=== PATIENT | male | born 1985 | race American Indian/Alaskan Native ===

== ENCOUNTER 2018-07-03 15:24 | Emergency (ER) | payer OTHER ==
[2018-07-03 15:32] VITALS: BMI 31.3
[2018-07-03 15:37] VITALS: TEMP 98.8
--- NOTE | 2018-07-03 15:43 | ED PDOC ---
Arrival/HPI - General Chief Complaint: Lower Extremity Problem/Injury Time Seen by Provider: 07/03/18 15:30 Historian: Patient - History of Present Illness Narrative History of Present Illness (Text): 33 y/o male with no significant PMH presents to the ED c/o mass on his right foot x 15 years. Patient states the mass intermittently changes in size and has recently become more painful over the last few weeks. Denies trauma/injury, fever, chills, redness, warmth, drainage, difficulty walking, weakness, numbness, or any other associated symptoms. Past Medical History - Provider Review Nursing Documentation Reviewed: Yes - Infectious Disease Hx of Infectious Diseases: None - Psychiatric Hx Substance Use: No Family/Social History - Physician Review Nursing Documentation Reviewed: Yes Family/Social History: No Known Family HX Smoking Status: Never Smoked Hx Alcohol Use: No Hx Substance Use: No Allergies/Home Meds Allergies/Adverse Reactions: Allergies No Known Allergies Allergy (Verified 07/03/18 15:32) Review of Systems - Physician Review All systems were reviewed & negative as marked: Yes - Review of Systems Constitutional: Normal. absent: Fevers Eyes: Normal. absent: Vision Changes ENT: Normal. absent: Sore Throat, Sinus Congestion Respiratory: Normal. absent: SOB, Cough Cardiovascular: Normal. absent: Chest Pain, Palpitations, Syncope Gastrointestinal: Normal. absent: Abdominal Pain, Nausea, Vomiting Genitourinary Male: Normal Musculoskeletal: Other (right foot mass) Skin: Normal. absent: Rash, Cellulitis Neurological: Normal. absent: Headache, Dizziness, Focal Weakness, Gait Changes, Other (numbness, paresthesias) Endocrine: Normal Hemo/Lymphatic: Normal. absent: Adenopathy Psychiatric: Normal Physical Exam Vital Signs Reviewed: Yes Vital Signs Temp Pulse Resp BP Pulse Ox 07/03/18 15:25 98.8 F 88 16 144/89 98 Temperature: Afebrile Blood Pressure: Normal Pulse: Regular Respiratory Rate: Normal Appearance: Positive for: Well-Appearing, Non-Toxic, Comfortable Pain Distress: None Mental Status: Positive for: Alert and Oriented X 3 - Systems Exam Head: Present: Atraumatic, Normocephalic Pupils: Present: PERRL Extroacular Muscles: Present: EOMI Conjunctiva: Present: Normal Mouth: Present: Moist Mucous Membranes Neck: Present: Normal Range of Motion. No: Meningeal Signs, Paraspinal Tenderness Respiratory/Chest: Present: Clear to Auscultation, Good Air Exchange. No: Respiratory Distress, Accessory Muscle Use Cardiovascular: Present: Regular Rate and Rhythm, Normal S1, S2, Peripheal Pulses Present. No: Murmurs Back: Present: Normal Inspection Upper Extremity: Present: Normal Inspection, Normal ROM, NORMAL PULSES, Neurovascularly Intact, Capillary Refill < 2s. No: Cyanosis, Edema Lower Extremity: Present: NORMAL PULSES, Normal ROM, Tenderness (over mass; mild), Neurovascularly Intact, Capillary Refill < 2 s, Other (cyst-like mass to lateral dorsum of right foot). No: Edema, Erythema Neurological: Present: GCS=15, CN II-XII Intact, Speech Normal, Motor Func Grossly Intact, Normal Sensory Function, Gait Normal Skin: Present: Warm, Dry, Normal Color. No: Rashes, Diaphoretic, Erythematous, Induration, Hot, Abscess, Other (cellulitis) Psychiatric: Present: Alert, Oriented x 3, Normal Insight, Normal Concentration, Normal Affect, Normal Mood Medical Decision Making ED Course and Treatment: Initial Plan: * Right foot Xray * Ibuprofen Patient reports decreased pain after medications Right Foot XR: No fracture or dislocation. Soft tissue swelling over cuboid bone, non-specific. Plan of care discussed with patient, and strict instructions given regarding prescriptions, importance of follow up, and signs to return to Emergency Department, to include redness, warmth, fever, chills, difficulty walking, or any other new/worsening symptoms. Patient verbalizes understanding of discussion. Patient A&Ox3, ambulating with steady gait, stable for discharge home. Disposition/Present on Arrival - Present on Arrival Any Indicators Present on Arrival: No History of DVT/PE: No History of Uncontrolled Diabetes: No Urinary Catheter: No History of Decub. Ulcer: No History Surgical Site Infection Following: None - Disposition Have Diagnosis and Disposition been Completed?: Yes Diagnosis: Mass of right foot Disposition: HOME/ ROUTINE Disposition Time: 16:45 Patient Plan: Discharge Condition: STABLE Discharge Instructions (ExitCare): Ganglion Cyst Additional Instructions: Naproxen daily with food for pain as needed Followup with podiatry tomorrow Followup with primary doctor within 2 days Return to ER for any new/worsening symptoms Prescriptions: Naproxen [Naprosyn] 500 mg PO DAILY PRN #14 tablet PRN Reason: Pain, Moderate (4-7) Referrals: Podiatry Clinic [Outside] - Follow up with primary Forms: [email or web address] ([place]), WORK NOTE
--- NOTE | 2018-07-03 16:29 | RAD ---
Date of service: 07/03/2018 PROCEDURE: Right Foot Radiographs. HISTORY: foot pain COMPARISON: None. FINDINGS: BONES: Normal. No fracture. JOINTS: Normal. SOFT TISSUES: There is a focal area of soft tissue swelling or a soft tissue mass adjacent to the cuboid. This is nonspecific. OTHER FINDINGS: None. IMPRESSION: No evidence of fracture or bony abnormality
[2018-07-03 17:07] VITALS: BP 139/80; PULSE 83; RESP 18; O2SAT 100
== END 2018-07-03 17:05 | disposition home or self-care (01) ==
LOC: ED 15:24
DX: R22.41 Localized swelling, mass and lump, right lower limb (principal)

== ENCOUNTER 2018-12-23 20:37 | Emergency (ER) | payer OTHER ==
[2018-12-23 20:37] VITALS: BMI 31.3
[2018-12-23 21:31] VITALS: BP 142/84; PULSE 91; RESP 18; TEMP 98.5; O2SAT 97
[2018-12-23] MEDS ORDERED: Tobramycin 0.3% OPHT SOLN OU STA (21:47)
--- NOTE | 2018-12-23 21:51 | ED PDOC ---
Arrival/HPI - General Chief Complaint: ENT Problem Time Seen by Provider: 12/23/18 20:41 Historian: Patient - History of Present Illness Narrative History of Present Illness (Text): 12/23/18 23:03 33 year old male with no significant past medical history, presents to the emergency department complaining of redness to both of his eyes 3-4 days ago with tick yellow greenish discharge, runny nose, and sore throat. Patient denies any eye pain or decrease vision. Patient does not wear contacts. Patient denies any fever, cough, or any other complaints. Time/Duration: Other (3-4 days) Symptom Onset: Gradual Symptom Course: Unchanged Activities at Onset: Light Context: Home Past Medical History - Provider Review Nursing Documentation Reviewed: Yes - Infectious Disease Hx of Infectious Diseases: None - Psychiatric Hx Substance Use: No - Surgical History Other/Comment: R foot mass removal Family/Social History - Physician Review Nursing Documentation Reviewed: Yes Family/Social History: No Known Family HX Smoking Status: Current Some Days Smoker Hx Alcohol Use: Yes Frequency of alcohol use: Socially Hx Substance Use: No Allergies/Home Meds Allergies/Adverse Reactions: Allergies No Known Allergies Allergy (Verified 07/03/18 15:32) Review of Systems - Physician Review All systems were reviewed & negative as marked: Yes - Review of Systems Constitutional: absent: Fevers Eyes: Other (redness and discharge to his eyes). absent: Vision Changes, Eye Pain ENT: absent: Sore Throat, Rhinorrhea Respiratory: absent: Cough Physical Exam Vital Signs Reviewed: Yes Vital Signs Temp Pulse Resp BP Pulse Ox 12/23/18 21:23 98.5 F 91 H 18 142/84 97 Temperature: Afebrile Blood Pressure: Normal Pulse: Regular Respiratory Rate: Normal Appearance: Positive for: Well-Appearing, Non-Toxic, Comfortable Pain Distress: None Mental Status: Positive for: Alert and Oriented X 3 - Systems Exam Head: Present: Atraumatic, Normocephalic Pupils: Present: PERRL Extroacular Muscles: Present: EOMI Conjunctiva: Present: Injected Mouth: Present: Moist Mucous Membranes Neck: Present: Normal Range of Motion Respiratory/Chest: Present: Clear to Auscultation, Good Air Exchange. No: Respiratory Distress, Accessory Muscle Use Cardiovascular: Present: Regular Rate and Rhythm, Normal S1, S2. No: Murmurs Back: Present: Normal Inspection Upper Extremity: Present: Normal Inspection. No: Cyanosis, Edema Lower Extremity: Present: Normal Inspection. No: Edema Neurological: Present: GCS=15, CN II-XII Intact, Speech Normal Skin: Present: Warm, Dry, Normal Color. No: Rashes Psychiatric: Present: Alert, Oriented x 3, Normal Insight, Normal Concentration Medical Decision Making ED Course and Treatment: 12/23/18 23:08 Impression: 33 year old male presents complaining of redness and discharge to his eye associated with runny nose and sore throat for the past 3-4 days. Plan: -- Prescriptions for Tobramycin 0.3% -- Reassess and disposition Progress Notes: Visual acuity : L eye 20/25 R eye 20/15 Patient is in no acute distress. I have discussed the plan with the patient, who expresses understanding. Patient in agreement with plan to be discharged home. Patient is stable for discharge. Patient was instructed to follow up with physician or return if symptoms worsen or new concerning symptoms arise. - PA / [employer] SALES REPRESENTATIVE / Resident Statement MD/DO has reviewed & agrees with the documentation as recorded. - Scribe Statement The provider has reviewed the documentation as recorded by the Gilbertibe Tyler Holley Provider Scribe Attestation: All medical record entries made by the Zbigniew were at my direction and personally dictated by me. I have reviewed the chart and agree that the record accurately reflects my personal performance of the history, physical exam, medical decision making, and the department course for this patient. I have also personally directed, reviewed, and agree with the discharge instructions and disposition. Disposition/Present on Arrival - Present on Arrival Any Indicators Present on Arrival: No History of DVT/PE: No History of Uncontrolled Diabetes: No Urinary Catheter: No History of Decub. Ulcer: No History Surgical Site Infection Following: None - Disposition Have Diagnosis and Disposition been Completed?: Yes Diagnosis: Conjunctivitis Disposition: HOME/ ROUTINE Disposition Time: 21:45 Patient Plan: Discharge Condition: STABLE Discharge Instructions (ExitCare): Conjunctivitis ([place]) (DC) Additional Instructions: Thank you for letting us take care of you today. You were treated for conjunctivitis. The emergency medical care you received today was directed at your acute symptoms. If you were prescribed any medication, please fill it and take as directed. It may take several days for your symptoms to resolve. Return to the Emergency Department if your symptoms worsen, do not improve, or if you have any other problems. Please contact your doctor in 2 days for re-evaluation and follow up / or call one of the physicians/clinics you have been referred to that are listed on the Patient Visit Information form that is included in your discharge packet. Bring any paperwork you were given at discharge with you along with any medications you are taking to your follow up visit. Our treatment cannot replace ongoing medical care by a primary care provider (PCP) outside of the emergency department. Thank you for allowing the [facility] team to be part of your care today. Prescriptions: Tobramycin 0.3% [Tobrex 0.3% Ophth Soln] 2 drop OU QID #1 bottle Referrals: PCP,NO [Primary Care Provider] - Follow up with primary Leslie Parra MD [Staff Provider] - Follow up with primary Forms: [employer] ([place])
== END 2018-12-23 21:23 | disposition home or self-care (01) ==
LOC: ED 20:37
DX: H10.9 Unspecified conjunctivitis (principal)